=== PATIENT | female | born 1935 | race Caucasian/White ===

== ENCOUNTER 2019-09-12 20:30 | Observation (INO) | payer OTHER, SELFPAY ==
[2019-09-12] VITALS (8 sets, daily range): BP systolic 137–151; BP diastolic 68–81; PULSE 58–77; RESP 14–20; TEMP 36.2–36.6; O2SAT 95–99
--- NOTE | ~2019-09-12 | US_ITS ---
EXAMINATION: US carotid duplex BI DATE: 09/13/2019 08:22 INDICATION: Aphasia TECHNIQUE: Grayscale, color Doppler, and pulsed Doppler images of the cervical carotid arteries were obtained. The degree of vessel stenosis is placed in one of the following categories: normal, <50%, 5 0-69%, >=70% but less than near-occlusion, near-occlusion, or total occlusion. Note that percent sten osis relative to normal distal artery lumen diameter is indirectly measured from velocity measurement s as described by Stan, et al. Radiology 2003; 229:340-346. COMPARISON: None. FINDINGS: RIGHT: The right common carotid artery (CCA) peak systolic velocity (PSV) is 83 cm/s. The right internal car otid artery (ICA) PSV is 108 cm/s. The right ICA end-diastolic velocity (EDV) is 39 cm/s. The right I CA/CCA PSV ratio is 1.2. Grayscale and color Doppler images yield an estimate of <50% diameter reduct ion from plaque in the ICA. The external carotid artery (ECA) PSV is 82 cm/s. There is antegrade flow in the right vertebral artery. LEFT: The left CCA PSV is 94 cm/s. The left ICA PSV is 195 cm/s. The left ICA EDV is 64 cm/s. The left ICA/ CCA PSV ratio is 1.9. Grayscale and color Doppler images yield an estimate of 50-69% diameter reducti on from plaque in the ICA. The ECA PSV is 84 cm/s. There is antegrade flow in the left vertebral heather ry. IMPRESSION: 1. <50% stenosis in the right internal carotid artery. 2. 50-69% stenosis in the left internal carotid artery. Reviewed, dictated and finalized at location A.
--- NOTE | ~2019-09-12 | XR_ITS ---
XR chest 1V portable DATE: 09/12/2019 21:16 INDICATION: Dizziness. Cerebrovascular accident. TECHNIQUE: Portable upright AP chest on 09/12/2019 at 2115 hours COMPARISON: 09/23/2014 PA and lateral chest FINDINGS: Normal heart size. Aortic arch calcification. No hilar or mediastinal enlargement. There is focal atelectasis suggested at the medial right lung base. The lungs otherwise appear clear of infiltrate or consolidation. No pleural effusion or pulmonary vascular congestion or pneumothorax. Diffuse osteopenia. Hill-Sachs deformity of right humeral head. IMPRESSION: Medial right basilar atelectasis Reviewed, dictated and finalized at location A.
--- NOTE | ~2019-09-12 | CT_ITS ---
EXAMINATION: CT brain wo con DATE: 09/12/2019 21:35 INDICATION: Stroke with aphasia and dizziness TECHNIQUE: Computed tomography (CT) of the head was performed without intravenous contrast. Sagittal and coronal reconstructions were performed. The mA was adjusted according to patient size. Iterative reconstruction technique was employed. The dose-length product was 605.33 mGy-cm. COMPARISON: None FINDINGS: No acute intracranial hemorrhage, acute infarction or abnormal extra axial fluid collection. Small ol d lacunar infarct versus more likely prominent perivascular space at the inferior left basal ganglia. There is minimal periventricular predominant white matter hypoattenuation consistent with chronic sm all vessel ischemic disease. Ventricles are normal and symmetric. No mass/mass effect. Changes of bi lateral intraocular lens replacement. Small bilateral mastoid effusions. Mild mucoperiosteal thickeni ng the bilateral ethmoid sinuses. Mild scattered intracranial calcified cerebral atherosclerosis is n oted. IMPRESSION: 1. No acute intracranial process. 2. Minimal scattered white matter hypoattenuation consistent with chronic small vessel ischemic disea se. 3. Possible old lacunar infarct at left basal ganglia versus more likely prominent perivascular space . Reviewed, dictated and finalized at location A. IMPRESSION: 1. No acute intracranial process. 2. Minimal scattered white matter hypoattenuation consistent with chronic small vessel ischemic disease. 3. Possible old lacunar infarct at left basal ganglia versus more likely promin ent perivascular space.
--- NOTE | ~2019-09-12 | MR_ITS ---
EXAMINATION: MR brain/brain stem wo/w con DATE: 09/13/2019 07:47 INDICATION: Aphasia. Dizziness. TECHNIQUE: Magnetic resonance imaging (MRI) of the brain and brainstem was performed without and with 11 mL Multihance intravenous contrast. Sequences included sagittal and axial T1-weighted SE, axial d iffusion-weighted FS SE, axial T2*-weighted GRE, axial T2-weighted FLAIR, and axial T2-weighted FSE. Postcontrast axial and coronal T1-weighted SE was obtained. Apparent diffusion coefficient (ADC) maps were created. COMPARISON: Head CT dated 09/12/2019 FINDINGS: There are no areas of restricted diffusion to suggest acute infarction. Tiny focus of susceptibility artifact in the left occipital lobe on the T2*weighted image without evident correlate on the prior C T suggesting the presence of chronic blood products related to old microhemorrhage. No abnormal intra cranial mass lesion. Minimal scattered areas of nonspecific increased T2-weighted signal intensity in the cerebral white matter, predominantly involving the deep and periventricular white matter which i s within normal limits for age. There are no intraparenchymal signal abnormalities seen on the other pulse sequences. The ventricles are symmetric and normal in size. There are no abnormal extra-axial f luid collections. Flow voids are seen in the cerebral arteries on the T2-weighted sequences consisten t with their expected patency. Changes of bilateral intraocular lens replacement. Mild mucoperiosteal thickening in the right frontal and bilateral ethmoid sinuses. Small bilateral mastoid effusions. Th ere are no areas of abnormal enhancement on the post contrast images. IMPRESSION: 1. No acute intracranial process or abnormally enhancing lesions. 2. Tiny focus of susceptibility artifact in the left occipital lobe likely related to chronic microhe morrhage. Reviewed, dictated and finalized at location A. IMPRESSION: 1. No acute intracranial process or abnormally enhancing lesions. 2. Tiny focus of susceptibility artifact in the left occipital lobe likely rela carlee to chronic microhemorrhage.
--- NOTE | 2019-09-12 20:43 | ECG_ITS ---
Measurements Intervals [place] Rate: 67 P: 71 ND: 149 QRS: 6 QRSD: 98 T: 62 QT: 365 QTc: 387 Interpretive Statements SINUS RHYTHM WITH SINUS ARRHYTHMIA LOW QRS VOLTAGE IN PRECORDIAL LEADS INCOMPLETE RIGHT BUNDLE BRANCH BLOCK DELAYED PRECORDIAL R/S TRANSITION BASELINE ARTIFACT- I, II, III, AVL BORDERLINE ECG Electronically Signed On 09-13-2019 6:50:26 CDT by Kal Mcguire D.O.
--- NOTE | 2019-09-12 20:48 | ED.GENADULT ---
HPI - General Adult General Chief complaint: Dizziness Stated complaint: dizzy Time Seen by Provider: 09/12/19 20:33 Source: RN notes reviewed History of Present Illness HPI narrative: Patient presents emergency department from home for dizziness. Patient states she has been having dizzy spells since yesterday. She states that during these dizzy spells she becomes dizzy and has difficulty speaking. States the episodes last approximately 3 to 4 minutes and then resolve on their own. She denies having any numbness or weakness of any of her extremities. She denies any previous history of CVA or TIA and denies taking blood thinners. Denies any vision changes, chest pain, shortness of breath abdominal pain or any other symptoms Related Data Home Medications Medication Instructions Recorded Confirmed tolterodine mg PO 09/12/19 Allergies Allergy/AdvReac Type Severity Reaction Status Date / Time No Known Allergies Verified 09/12/19 20:41 Review of Systems Review of Systems: Narrative: Gen.: Denies fevers or chills Eyes: Denies eye pain or visual change ENT: Denies congestion Respiratory: Denies shortness of breath or cough CV: Denies chest pain or palpitations GI: Denies abdominal pain nausea, emesis or diarrhea Musculoskeletal: Denies back pain or muscle pain Neuro: See HPI Skin: Denies rash Except as documented, all other systems reviewed and negative [facility] Past Medical History Medical History (Updated 09/12/19 @ 22:44 by Dorian Kumar DO) Patient denies significant medical history Social History Social History (Updated 09/12/19 @ 20:49 by Dorian Kumar DO) Smoking status: Never smoker Exam Narrative: Exam Narrative: APPEARANCE: No acute distress, nontoxic, resting in bed HEENT: Normocephalic, atraumatic, OMM, TMs clear bilaterally EYES: PERRL, EOMI NECK: Supple, nontender, full range of motion without pain, no meningismus RESPIRATORY: No respiratory distress, clear to auscultation bilaterally with no rhonchi wheezing or rales CARDIOVASCULAR: RRR s murmur ABDOMINAL: Soft, nontender, nondistended MUSCULOSKELETAL: Moves all extremities. No clubbing, cyanosis or edema. NEURO: A and O ?3, following commands, speech normal, cranial nerves II through XII grossly intact,muscle strength 5 out of 5 bilateral upper and lower extremities SKIN:: Warm, dry. Normal Color PSYCHIATRIC: Normal affect/mood Course Course Emergency Course: Discussed with Dr. Paiz presentation work-up. Agrees with admission at this time Discussed with patient and family results of workup and diagnosis. Discussed need for admission. Patient and family understand and agree to current treatment plan Vital Signs Vital signs: Vital Signs Temperature 97.6 F 09/12/19 20:33 Pulse Rate 77 09/12/19 20:33 Respiratory Rate 18 09/12/19 20:33 Blood Pressure 147/81 H 09/12/19 20:33 Pulse Oximetry 97 09/12/19 20:33 Temperature 97.6 F 09/12/19 20:33 Pulse Rate 63 09/12/19 22:39 Respiratory Rate 14 09/12/19 22:39 Blood Pressure 137/68 09/12/19 22:39 Pulse Oximetry 95 09/12/19 22:39 Medical Decision Making MDM Narrative Medical decision making narrative: Patient with intermittent episodes of dizziness associated with inability to speak concern for possible TIA will admit for further evaluation Vital Signs Vital Signs: Vital Signs Temperature 97.6 F 09/12/19 20:33 Pulse Rate 77 09/12/19 20:33 Respiratory Rate 18 09/12/19 20:33 Blood Pressure 147/81 H 09/12/19 20:33 Pulse Oximetry 97 09/12/19 20:33 Temperature 97.6 F 09/12/19 20:33 Pulse Rate 63 09/12/19 22:39 Respiratory Rate 14 09/12/19 22:39 Blood Pressure 137/68 09/12/19 22:39 Pulse Oximetry 95 09/12/19 22:39 Lab Data Result diagrams: 09/12/19 20:53 09/12/19 20:53 Labs: Lab Results 09/12/19 09/12/19 09/12/19 Range/Units 20:53 20:53 20:53 WBC 5.6 (4.5-10.0) K/m
[2019-09-12 20:57] LABS: Basophils Percent Auto 0.7 % (0.2-1.2); Eosinophils Absolute Auto 0.2 K/mm3 (0-0.3); Hematocrit 39.9 % (37.0-47.0); Hemoglobin 13.2 g/dL (12.0-15.0); Immature Granulocyte Absolute 0.02 K/mm3 (0.00-0.031); Immature Granulocyte Percent A 0.4 % (0-0.5); Lymphocytes Absolute Auto 2.03 K/mm3 (0.9-3.2); Lymphocytes Percent Auto 36.3 % (18.3-44.2); Mean Corpuscular HGB Conc 33.1 g/dl (32-36); Mean Corpuscular Volume 93.7 fl (80-100); Mean Platelet Volume 9.4 fl (7.4-10.4); Monocytes Absolute Auto 0.6 K/mm3 (0.1-0.6); Monocytes Percent Auto 10.7 % (2.6-8.5); Neutrophils Absolute Auto 2.7 K/mm3 (1.3-6.7); Neutrophils Percent Auto 48.9 % (45.5-73.1); Platelet Count Result 227 k/mm3 (150-375); Red Blood Count 4.26 M/mm3 (4.2-5.4); White Blood Count 5.6 K/mm3 (4.5-10.0)
[2019-09-12 21:09] LABS: Alanine Aminotransferase 12 U/L (4-35); Albumin Level 4.2 g/dL (3.5-5.1); Alkaline Phosphatase 54 U/L (38-126); Aspartate Amino Transferase 27 U/L (14-36); Bilirubin,Total 0.5 mg/dL (0.2-1.3); Blood Urea Nitrogen 27 mg/dL (7-17); Calcium 9.4 mg/dL (8.4-10.2); Carbon Dioxide 25 mmol/L (22-30); Chloride 104 mmol/L (98-107); Estimated Glomerular Filt Rate 47; Glucose 100 mg/dL (65-105); INR 0.9; Potassium 4.2 mmol/L (3.4-5.0); Prothrombin Time 12.2 Seconds (11.1-14.7); Sodium 136 mmol/L (137-145)
[2019-09-12 21:10] LABS: Partial Thromboplastin Time 26.8 SECONDS (22.3-36.8)
[2019-09-12 21:20] LABS: Troponin I < 0.012 ng/mL (0.000-0.034)
[2019-09-12 22:01] LABS: Add Urine Microscopic? YES; Appearance Urine Clear (Clear); Bacteria Urine 2+ /hpf; Bilirubin Urine Negative (Negative); Blood Urine 2+ (Negative); Color Urine Straw (Yellow); Glucose Urine UA Negative (Negative); Ketones Urine Negative (Negative); Leukocyte Esterase Ur 2+ LEU/UL (Negative); Nitrate Urine Positive (Negative); Protein Urine Negative (Negative); Specific Grav Ur 1.006 (1.001-1.035); Squamous Epithelial Cell Urine Few /hpf (Few); Urobilinogen Urine Negative mg/dL (<2.0)
[2019-09-12] MEDS: ASPIRIN 81 MG CHEWABLE TABLET 324 MG PO (22:43)
--- NOTE | 2019-09-12 23:33 | PC.NURSE ---
This patient, Cristina Duenas, was admitted to 2 Medical Room 240-. Patient/family oriented to hospital policies and general routines including ID bracelet, bed and alarms, visiting hours, pain management, procedures, bathroom and other care routines, personal items, smoking policy, room service/diet, and visiting hours. Valuables list has been completed. Information on how to activate the Rapid Response Team has been discussed. Patient/Family are encouraged to report perceived risks to care and to ask questions if they do not understand what they are told or what they should do.
[2019-09-13] VITALS: PULSE 62
--- NOTE | 2019-09-13 00:39 | PM.IMHP ---
H&P: HPI History of Present Illness Chief complaint: Dizziness for 2 days++ Narrative: This is an 84 year old female who presented to the hospital with a complaint of intermittent dizzy spells for the past 2 days. She is not sure what incited this dizzy spells but noticed that they occur when she is standing. She also noticed that when she has a dizzy spell, she can't speak. She knows what she wants to say but can't get the words out. Her dizzy spell would last less than 5 minutes and then resolve. She reports many dizzy spells yesterday and can't remember exactly the number. She denies any auditory symptoms or ringing in her ears. She has no previous history of strokes. On further questioning she also denies any recent head trauma, blurry vision, double vision, seizure like activity, numbness, tingling, facial droop or focal weakness. She also denies any headache, fever, chills, chest pain, neck stiffness, abdominal pain, shortness of breath, cough, dysuria, hematuria, nausea, vomiting, diarrhea or rectal bleeding. The patient was evaluated in the ER and routine labs were obtained. Brain CT was unremarkable for acute pathology. Urinalysis was abnormal and the patient was started on IV antibiotics. Review of Systems Review of Systems: All systems reviewed & are unremarkable except as noted in HPI and below PMFSH Past Medical History Medical History Patient denies significant medical history Family History Family History Father Cerebrovascular accident Sibling Muscular dystrophy Social History Social History Smoking status: Former smoker Tobacco type: cigarettes Alcohol intake: never Substance use: never Substance use type: does not use Spiritual care concerns: No Meds Home Medications and Allergies Home Medications Medication Instructions Recorded Confirmed Type tolterodine 4 mg PO DAILY 09/12/19 09/12/19 History Allergies Allergy/AdvReac Type Severity Reaction Status Date / Time No Known Allergies Verified 09/12/19 20:41 Vital Signs Vital Signs - 24 hr 09/12/19 20:33 09/12/19 20:47 07/04/20 21:00 Temperature 36.4 C Pulse Rate 77 73 71 Respiratory Rate 18 18 Blood Pressure 147/81 H Pulse Oximetry 97 98 96 09/12/19 21:15 09/12/19 22:39 09/12/19 23:16 Temperature 36.6 C Pulse Rate 70 63 62 Respiratory Rate 20 14 18 Blood Pressure 137/68 138/74 Pulse Oximetry 97 95 99 09/12/19 23:55 Temperature 36.2 C L Pulse Rate 58 L Respiratory Rate 18 Blood Pressure 151/79 H Pulse Oximetry 99 Exam Const: General: cooperative, healthy appearing, no acute distress, alert and awake Nutritional Appearance: well nourished Orientation/consciousness: patient oriented x3 HENMT: Head: normal to inspection General nose exam: Normal external nose present Face and sinus: normal facial exam Mouth: Yes Normal oral and palatal mucosa present and Yes oropharynx normal Eyes: Pupils: Equal, round and reactive pupils present EOM: EOMs intact bilaterally Neck: Neck: supple and no JVD Thyroid: thyroid normal Lymphatic: lymphadenopathy not noted Resp: Effort & Inspection: normal respiratory effort Auscultation: clear to auscultation bilaterally Cardio: Rate: regular rate Rhythm: regular rhythm Heart sounds: no murmurs GI: Inspection: normal to inspection Auscultation: normal bowel sounds Skin: General skin exam: normal color and no rashes or lesions noted Neuro: General: patient oriented x3 and other ([place]-Hallpike maneuver was questionably positive++ ) Cranial nerves: Yes CN's II-XII intact bilaterally and Yes Equal, round and reactive pupils present Speech: normal speech Motor exam (neuro): 5/5 motor strength present throughout Sensory Exam: normal sensation Extrem: General: normal to inspection and no e
[2019-09-13 01:06] LABS: Troponin I < 0.012 ng/mL (0.000-0.034)
[2019-09-13 03:23] LABS: Basophils Percent Auto 0.7 % (0.2-1.2); Eosinophils Absolute Auto 0.2 K/mm3 (0-0.3); Eosinophils Percent Auto 3.7 % (0-4.4); Hematocrit 41.8 % (37.0-47.0); Hemoglobin 13.6 g/dL (12.0-15.0); Immature Granulocyte Absolute 0.01 K/mm3 (0.00-0.031); Immature Granulocyte Percent A 0.2 % (0-0.5); Lymphocytes Absolute Auto 1.93 K/mm3 (0.9-3.2); Lymphocytes Percent Auto 35.6 % (18.3-44.2); Mean Corpuscular HGB Conc 32.5 g/dl (32-36); Mean Corpuscular Hemoglobin 30.7 pg (26-34); Mean Corpuscular Volume 94.4 fl (80-100); Mean Platelet Volume 9.3 fl (7.4-10.4); Monocytes Absolute Auto 0.5 K/mm3 (0.1-0.6); Neutrophils Absolute Auto 2.8 K/mm3 (1.3-6.7); Neutrophils Percent Auto 50.8 % (45.5-73.1); Platelet Count Result 192 k/mm3 (150-375); Red Blood Count 4.43 M/mm3 (4.2-5.4); Red Cell Distribution Width 12.8 % (11.5-14.5); White Blood Count 5.4 K/mm3 (4.5-10.0)
[2019-09-13 03:25] LABS: Blood Urea Nitrogen 24 mg/dL (7-17); Calcium 9.6 mg/dL (8.4-10.2); Carbon Dioxide 28 mmol/L (22-30); Chloride 106 mmol/L (98-107); Estimated Glomerular Filt Rate 53; Glucose 90 mg/dL (65-105); Sodium 139 mmol/L (137-145)
[2019-09-13 03:37] LABS: Troponin I < 0.012 ng/mL (0.000-0.034)
[2019-09-13 04:00] VITALS: PULSE 55
[2019-09-13 06:00] VITALS: BP 140/61; PULSE 58; RESP 18; TEMP 36.6; O2SAT 96
[2019-09-13] MEDS: ASPIRIN 81 MG ENTERIC TABLET PO (08:35)
[2019-09-13] MEDS: TOLTERODINE TARTRATE LA 4 MG CAP.ER.24H PO (08:35)
[2019-09-13 12:00] VITALS: PULSE 69
--- NOTE | 2019-09-13 12:23 | PM.DS ---
DS: Discharge Diagnosis Discharge Diagnosis (1) Dizziness: Code(s): R42 - Dizziness and giddiness Status: Acute Assessment and Plan: Patient's symptoms have resolved today. MRI brain read No acute intracranial process or abnormally enhancing lesions.Tiny focus of susceptibility artifact in the left occipital lobe likely related to chronic microhemorrhage. Carotid doppler shows 50-69% stenosis of left carotid, <50% on right. Echo would not be done until tomorrow. TIA vs vestibular dysfunction vs migraine vs other. Telemetery shows predominantly sinus rhythm with occasional PVCs; bradycardia noted overnight; artifact noted; no evidence of a. fib or other arrhythmias. Spoke to patient about discharge today with follow up with PCP about further imaging; patient comfortable with this plan. Discharge today (2) Aphasia: Code(s): R47.01 - Aphasia Status: Resolved Assessment and Plan: Patient speaking clearly and appropriately today. No further symptoms. PAtient notes symptoms usually happen with dizziness. See above a/p (3) Abnormal urinalysis: Code(s): R82.90 - Unspecified abnormal findings in urine Status: Acute Assessment and Plan: Patient asymptomatic. UA suspicious for UTI without reflexing to culture. One dose of Rocephin in the ER. As patient asymptomatic and no culture obtained, will have her follow up with PCP should symptoms arise (4) Urinary incontinence: Qualifiers: Urinary Incontinence type: unspecified incontinence Qualified Code(s): R32 - Unspecified urinary incontinence Code(s): R32 - Unspecified urinary incontinence Status: Chronic Assessment and Plan: No acute issues Continue tolterodine. DS: Summary Hospital Course Reason for hospitalization: Dizziness, r/o CVA Hospital Course: Patient is a 84 yo F who presented to the ER on 09/11 with complaints of dizzy episodes for the previous 2 days. Episodes would last less than 5 minutes and then resolve. Associated symptoms included aphasia. While in the ER, CT of the brain was unremarkable for acute pathology. CVA/TIA still of concern. Patient admitted under this setting. Please see H&P for further details. Of note, UA was abnormal and was initially started on IV antibiotics in the ER, however, patient was asymptomatic and UA did not reflex to culture; antibiotics were not continued at admission for this reason. Presenting VS: Temp Pulse Resp BP Pulse Ox 97.6 F 77 18 147/81 H 97 09/12/19 20:33 09/12/19 20:33 09/12/19 20:33 09/12/19 20:33 09/12/19 20:33 Presenting Pertinent labs: UA showed 2+ blood, positive natrate, 2+ leuk est, 3-5 RBC, 4-6 WBC, 2+ bacteria. CBC, coag, chemistry, serial troponins, UA otherwise unremarkable Micro: none Imaging: Chest X-Ray 09/12/19 21:23 IMPRESSION: Medial right basilar atelectasis Carotid Doppler Study 09/13/19 08:50 IMPRESSION: 1. <50% stenosis in the right internal carotid artery. 2. 50-69% stenosis in the left internal carotid artery. Brain MRI 09/13/19 08:55 IMPRESSION: 1. No acute intracranial process or abnormally enhancing lesions. 2. Tiny focus of susceptibility artifact in the left occipital lobe likely related to chronic microhemorrhage. Head CT 09/13/19 10:30 IMPRESSION: 1. No acute intracranial process. 2. Minimal scattered white matter hypoattenuation consistent with chronic small vessel ischemic disease. 3. Possible old lacunar infarct at left basal ganglia versus more likely prominent perivascular space. ECG: Interpretive Statements SINUS RHYTHM WITH SINUS ARRHYTHMIA LOW QRS VOLTAGE IN PRECORDIAL LEADS INCOMPLETE RIGHT BUNDLE BRANCH BLOCK DELAYED PRECORDIAL R/S TRANSITION BASELINE ARTIFACT- I, II, III, AVL BORDERLINE ECG Patient was admitted to the hospitalist service for further evaluation of dizzy spells
== END 2019-09-13 13:15 | disposition home or self-care (01) ==
LOC: ANHED 22:45 → ANH2MED 22:55
PROVIDERS: Admitting Provider Family Medicine; Emergency Provider Emergency Medicine; PCP Internal Medicine; Visit Provider Internal Medicine
DX: R42 Dizziness and giddiness (principal); R47.01 Aphasia; R82.90 Unspecified abnormal findings in urine; R32 Unspecified urinary incontinence; Z87.891 Personal history of nicotine dependence; Z79.899 Other long term (current) drug therapy
CPT/HCPCS: 36415; 70450; 70553; 71045; 80048; 80053; 81001; 84484; 85025; 85610; 85730; 93005; 93880; 96365; 99285; A9270; A9577; G0378; J0696

== ENCOUNTER 2023-11-08 11:40 | Emergency (ER) | payer OTHER, SELFPAY ==
--- NOTE | ~2023-11-08 | CT_ITS ---
Non-contrast Head CT History: Headache Technique: Axial non-contrast imaging of the brain was performed. Dose reduction technique was used on this scan by utilizing automated exposure control and iterative reconstruction technique. The dose -length product (DLP) was 605.33 mGy-cm. Findings: There is no evidence of intracranial hemorrhage, mass lesion, or acute infarct. Brain par enchyma appears normal. The ventricles and subarachnoid spaces are normal in size. The calvarium ap pears normal. The visualized paranasal sinuses and mastoid air cells are clear. Impression: No significant abnormality seen. Reviewed, dictated and finalized at location . Impression: No significant abnormality seen.
[2023-11-08 11:47] VITALS: BP 194/89; PULSE 67; RESP 17; TEMP 36.7; O2SAT 97
[2023-11-08] MEDS: KETOROLAC 15 MG/ML VIAL (*BKC) IV PUSH (12:28)
[2023-11-08] MEDS: SODIUM CHLORIDE 0.9% IV 500 ML 999 ML IV CONT (12:28)
[2023-11-08] MEDS: PROCHLORPERAZINE EDISYLATE 10 MG/2 ML VIAL 5 MG IV PUSH (12:28)
[2023-11-08 12:31] LABS: Basophils Percent Auto 0.5 % (0.2-1.2); Eosinophils Percent Auto 0.3 % (0-4.4); Hemoglobin 14.1 g/dL (12.0-15.0); Immature Granulocyte Absolute 0.01 K/mm3 (0.00-0.031); Immature Granulocyte Percent A 0.2 % (0-0.5); Lymphocytes Absolute Auto 1.59 K/mm3 (0.9-3.2); Lymphocytes Percent Auto 27.4 % (18.3-44.2); Mean Corpuscular HGB Conc 33.6 g/dl (32-36); Mean Corpuscular Hemoglobin 31.9 pg (26-34); Mean Platelet Volume 8.8 fl (7.4-10.4); Monocytes Absolute Auto 0.3 K/mm3 (0.1-0.6); Monocytes Percent Auto 5.3 % (2.6-8.5); Neutrophils Absolute Auto 3.8 K/mm3 (1.3-6.7); Neutrophils Percent Auto 66.3 % (45.5-73.1); Platelet Count Result 210 k/mm3 (150-375); Red Blood Count 4.42 M/mm3 (4.2-5.4); Red Cell Distribution Width 12.2 % (11.5-14.5); White Blood Count 5.8 K/mm3 (4.5-10.0)
[2023-11-08 12:42] LABS: Alanine Aminotransferase 12 U/L (6-35); Albumin Level 4.2 g/dL (3.5-5.1); Alkaline Phosphatase 70 U/L (38-126); Anion Gap 10 mmol/L (4-12); Aspartate Amino Transferase 26 U/L (14-36); Bilirubin,Total 0.9 mg/dL (0.2-1.3); Blood Urea Nitrogen 18 mg/dL (7-17); CRP < 0.5 mg/dL (<1.0); Calcium 9.1 mg/dL (8.4-10.2); Carbon Dioxide 26 mmol/L (22-30); Chloride 99 mmol/L (98-107); Estimated CRCL calculation 30 ml/min; Estimated Glomerular Filt Rate > 60; Glucose 122 mg/dL (65-110); Potassium 4.1 mmol/L (3.4-5.0); Sodium 135 mmol/L (137-145)
[2023-11-08 13:12] VITALS: BP 156/76; PULSE 61; RESP 18; O2SAT 97
--- NOTE | 2023-11-08 13:30 | ED.HA ---
HPI - Headache General Chief Complaint: Headache Stated Complaint: Migraines Time Seen by Provider: 11/08/23 12:10 Source: patient and family Mode of arrival: ambulatory History of Present Illness HPI Narrative: 88-year-old here with complaints of left-sided headache on and off for past few weeks. She denies any trauma. Since last night she has been having nausea and vomiting. Patient states that she has seen her doctor several times for the same. She denies any visual changes. She states she takes Tylenol 2 or 3 times today with no relief. MD elicited complaint: headache Onset (ago): week(s) Onset description: gradually Location: left and frontal Severity: moderate Quality & Timing: aching Exacerbating factors: none Relieving factors: nothing Associated symptoms: nausea and vomiting Treatments prior to arrival: acetaminophen Related Data Home Medications Medication Instructions Recorded Confirmed tolterodine 4 mg capsule,extended 4 mg PO DAILY 09/12/19 09/12/19 release 24 hr Allergies Allergy/AdvReac Type Severity Reaction Status Date / Time No Known Allergies Verified 11/08/23 11:51 Review of Systems Review of Systems: All systems reviewed & are unremarkable except as noted in HPI and below Constitutional: Constitutional: Reports no additional constitutional complaints Eyes: Eyes: Reports no additional eye complaints ENT: Reports system reviewed and no additional complaints, except as documented Cardiovascular: Cardiovascular: Reports no additional cardiovascular complaints Respiratory: Respiratory: Reports no additional respiratory complaints Gastrointestinal: Gastrointestinal: Reports as per HPI Musculoskeletal: Musculoskeletal: Reports no additional musculoskeletal complaints Neurologic: Reports system reviewed and no additional complaints, except as documented Psychiatric: Psychiatric: Reports no additional psychiatric complaints [facility] Past Medical History Medical History (Updated 11/08/23 @ 13:37 by Beck Engel MD) Patient denies significant medical history Family History Family History Father Cerebrovascular accident Sibling Muscular dystrophy Social History Social History Smoking status: Former smoker Tobacco type: cigarettes Alcohol intake: never Substance use: never Substance use type: does not use Spiritual care concerns: No Exam Narrative: GENERAL: Well-appearing, well-nourished, and in no acute distress. HEAD: Normocephalic, atraumatic. EYES: PERRLA and EOMI. ENT: Nares clear, no rhinorrhea or epistaxis. Mucous membranes moist. NECK: Supple. CHEST: Clear to auscultation. No respiratory distress. HEART: Regular rate and rhythm. No murmur heard. Normal peripheral pulses. ABDOMEN: Soft, nontender, nondistended, normal active bowel sounds. EXTREMITIES: Normal range of motion. No edema. SKIN: Warm, dry, no rash. NEURO: No focal deficits. Alert and oriented x3. PSYCH: Normal mood and affect. Course Course Emergency Course: I did give her IV fluids, Toradol and Compazine her pain has much improved. I did inform him about the lab work, CT findings. She does feel comfortable going home. Advised her to rest, follow-up with her primary doctor Vital Signs Vital signs: Vital Signs Temperature 36.7 C 11/08/23 11:47 Pulse Rate 67 11/08/23 11:47 Respiratory Rate 17 11/08/23 11:47 Blood Pressure 194/89 H 11/08/23 11:47 Pulse Oximetry 97 11/08/23 11:47 Oxygen Delivery Room Air 11/08/23 11:47 Temperature 36.7 C 11/08/23 11:47 Pulse Rate 61 11/08/23 13:12 Respiratory Rate 18 11/08/23 13:12 Blood Pressure 156/76 H 11/08/23 13:12 Pulse Oximetry 97 11/08/23 13:12 Oxygen Delivery Room Air 11/08/23 11:47 MDM - Headache MDM Narrative Medical decision making narrative: 88-year-old with his
[2023-11-08 14:03] VITALS: BP 150/75; PULSE 53; RESP 16; O2SAT 99
== END 2023-11-08 14:04 | disposition home or self-care (01) ==
PROVIDERS: Emergency Provider Family Medicine; PCP Internal Medicine
DX: G43.909 Migraine, unspecified, not intractable, without status migrainosus (principal); Z87.891 Personal history of nicotine dependence
CPT/HCPCS: 36415; 70450; 80053; 85025; 86140; 96374; 96375; 99284; J0780; J1885; J7040